=== PATIENT | female | born 2000 | race Caucasian/White ===

== ENCOUNTER → 2022-01-14 | Outpatient (CLI) | payer BC ==
--- NOTE | 2022-01-16 20:17 | HM ---
HOLTER MONITOR REPORT INDICATION: Palpitation. The patient was monitored for 48 hours. The baseline rhythm appeared to be sinus mechanism with a minimum heart rate of 47 beats per minute, max 142 beats per minute and average of 77 beats per minute. Ventricular ectopic events reported in less than 0% of the total beats count. Supraventricular ectopic events reported in less than 1% of the total beats count. No significant sinus pause or sinus arrest seen. The patient reported multiple episodes of symptoms including heart pounding and the symptoms were associated with sinus tachycardia. CONCLUSION: 1. This is a 48 event monitor. 2. Sinus rhythm as a baseline mechanism. 3. No significant arrhythmia noted. 4. The patient did have multiple episodes of symptoms including heart pounding and chest discomfort and the symptoms were associated with sinus tachycardia. MMODL / IJN: [id number] /
== END | disposition home or self-care (01) ==
LOC: RADECHMAIN 07:58
PROVIDERS: ATTEND Family Medicine
DX: R00.0 Tachycardia, unspecified (principal); R07.89 Other chest pain
CPT/HCPCS: 93225; 93226